=== PATIENT | male | born 1965 | race American Indian/Alaskan Native ===

== ENCOUNTER 2019-05-26 00:35 | Emergency (ER) | payer BC ==
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
[2019-05-26 03:23] LABS: Color,Urine Red (Yellow)
[2019-05-26 03:24] LABS: Bilirubin,Urine TNR (Negative)
[2019-05-26 03:25] LABS: Blood,Urine TNR (Negative); PH,Urine TNR (5.0-7.0); Protein,Urine TNR mg/dL (Negative); Urobilinogen,Urine TNR mg/dL (<2.0)
[2019-05-26 03:27] LABS: RBC,Urine > 182.0 /HPF (0.0-6.0)
[2019-05-26 03:31] LABS: Ictotest,Urine TNR (Negative)
[2019-05-26] MEDS ORDERED: SODIUM CHLORIDE IRRI 500 ML 0 ML IR ONE (03:59)
[2019-05-26] MEDS: SODIUM CHLORIDE 0.9% IRR 500 ML BOTTLE IR ONE ×3 (04:02→07:00)
[2019-05-26 06:18] VITALS: BP 136/84
[2019-05-26] MEDS ORDERED: MORPHINE 4 MG/1 ML INJ IV ONE (06:25)
[2019-05-26] MEDS ORDERED: ONDANSETRON 4 MG/2 ML INJ IV ONE (06:25)
[2019-05-26] MEDS ORDERED: SODIUM CHLORIDE IRRI 500 ML 500 ML IR ONE (06:47)
== END 2019-05-26 08:25 | disposition other institution (70) ==
LOC: ED 00:35
DX: R33.9 Retention of urine, unspecified (principal); R31.9 Hematuria, unspecified; R10.30 Lower abdominal pain, unspecified; I10 Essential (primary) hypertension; K21.9 Gastro-esophageal reflux disease without esophagitis; F10.10 Alcohol abuse, uncomplicated; Z79.899 Other long term (current) drug therapy
CPT/HCPCS: 51702; 81001; 87086; 96374; 96375; 99285; J2270; J2405